=== PATIENT | female | born 1960 | race Caucasian/White ===

== ENCOUNTER 2021-06-16 14:54 | Emergency (ER) | payer MEDICARE, OTHER ==
[~2021-06-16] VITALS: Ht 160 cm; Wt 69.8 kg
[2021-06-16 14:54] VITALS: BP 115/72
[2021-06-16] MEDS ORDERED: HYDROcodone/APAP 5/325MG 1 TAB TABLET PO ONE (15:15)
[2021-06-16] MEDS ORDERED: HYDROcodone/APAP 5/325MG 1 TAB TABLET ONE (15:16)
--- NOTE | 2021-06-16 15:24 | RAD ---
Exam: XR HAND_LEFT 3 VIEWS History: Pain in left hand after fall. Comparison: None. Findings: Osseous mineralization is normal. No acute fracture or dislocaton. Mild degenerative changes of the i nterphalangeal joints with narrowing and osteophyte formation. Degenerative changes of the triscaphe and first CMC joints. No focal soft tissue swelling. Impression: 1. No acute osseous abnormality of the left hand. Electronically signed by: Simon Swartz MD (06/16/2021 3:21 PM) [id number]
[2021-06-16] MEDS ORDERED: HYDR-2155 PO (16:30)
--- NOTE | 2021-06-16 16:31 | PHYS DOC ---
Past History Additional Past Medical Histor: back pain, Past Surgical History: Hysterectomy, Other Additional Past Surgical Histo: stent,rotator cuff, carpal tunnel Alcohol Use: None General Adult EDM: Chief Complaint: HAND PROBLEM HPI: HPI: Patient is a 61-year-old female presents with left hand pain. Patient states that she fell on gravel last night and has pain to the top of her left hand. Range of motion and sensation are intact. Bruising and some swelling noted. Denies taking anything for pain prior to arrival. Pain is exacerbated by movement. Review of Systems: Review of Systems: ROS At least 10 ROS systems have been reviewed and are negative except as documented in the HPI. General: Negative except as outlined in HPI above. Skin: Negative except as outlined in HPI above. HEENT: Negative except as outlined in HPI above. Neck: Negative except as outlined in HPI above. Respiratory: Negative except as outlined in HPI above.. Cardiovascular: Negative except as outlined in HPI above. Abdomen: Negative except as outlined in HPI above. : Negative except as outlined in HPI above. Back/MSK: Negative except as outlined in HPI above. Neuro: Negative except as outlined in HPI above. Psych: Negative except as outlined in HPI above. Current Medications: Current Meds: Current Medications Medications (Trade) Dose Ordered Sig/Abran Start Time Stop Time Status Last Admin Dose Admin Acetaminophen/ Hydrocodone Bitart (Lortab 5/325) 1 tab STK-MED ONCE 06/16/21 15:16 06/16/21 15:16 DC Allergies: Allergies: Allergies Coded Allergies Type Severity Reaction Last Updated Verified No Known Drug Allergies 06/16/21 No Physical Exam: PE: Constitutional: Well developed, well nourished, no acute distress, non-toxic appearance. [] HENT: Normocephalic, atraumatic, bilateral external ears normal, oropharynx moist, no oral exudates, nose normal. [] Eyes: PERRLA, EOMI, conjunctiva normal, no discharge. [] Neck: Normal range of motion, no tenderness, supple, no stridor. [] Cardiovascular:Heart rate regular rhythm, no murmur [] Lungs & Thorax: Bilateral breath sounds clear to auscultation [] Abdomen: Bowel sounds normal, soft, no tenderness, no masses, no pulsatile masses. [] Skin: Bruising to top of left hand, swelling Back: No tenderness, no CVA tenderness. [] Extremities: Mild tenderness, ROM intact, swelling, radial pulse intact Neurologic: Alert and oriented X 3, normal motor function, normal sensory function, no focal deficits noted. [] Psychologic: Affect normal, judgement normal, mood normal. [] Current Patient Data: Vital Signs: Vital Signs Date Time Temp Pulse Resp B/P (MAP) Pulse Ox O2 Delivery O2 Flow Rate FiO2 06/16/21 14:54 88 16 115/72 (86) 98 Room Air EKG: EKG: [] Radiology/Procedures: Radiology/Procedures: []Exam: XR HAND_LEFT 3 VIEWS History: Pain in left hand after fall. Comparison: None. Findings: Osseous mineralization is normal. No acute fracture or dislocaton. Mild degenerative changes of the interphalangeal joints with narrowing and osteophyte formation. Degenerative changes of the triscaphe and first CMC joints. No focal soft tissue swelling. Impression: 1. No acute osseous abnormality of the left hand. Electronically signed by: Simon Swartz MD (06/16/2021 3:21 PM) [id number] Heart Score: C/O Chest Pain: No Risk Factors: Risk Factors: DM, Current or recent (<one month) smoker, HTN, HLP, family history of CAD, obesity. Risk Scores: Score 0 - 3: 2.5% MACE over next 6 weeks - Discharge Home Score 4 - 6: 20.3% MACE over next 6 weeks - Admit for Clinical Observation Score 7 - 10: 72.7% MACE over next 6 weeks - Early Invasive Strategies Course & Med Decision Making: Course & Med Decision Making Pertinent Labs and Imaging studies reviewed. (See chart for details) [] 59-year-old male presents with left hand pain, swelling, bruising. Patient fell last night and injured her left hand. Radial pulses intact. Range of motion sensation intact. Work-up in ER consisted of left hand x-ray. Patient's pain was treated while in the ER. X-ray is unremarkable. No fracture seen. Educated on RICE. Advised patient to follow-up with PCP in the next 5 to 7 days if pain does not improve. Patient sent home with pain medication. ibuprofen at home for breakthrough pain. Antony Disclaimer: Antony Disclaimer: This electronic medical record was generated, in whole or in part, using a voice recognition dictation system. Departure Departure: Impression: Primary Impression: Hand contusion Qualified Codes: S60.222A - Contusion of left hand, initial encounter Disposition: HOME / SELF CARE / HOMELESS Condition: STABLE Referrals: PERLITA MORALES MD (PCP) Patient Instructions: Hand Contusion, [id number] Additional Instructions: Rest, use ice, elevate to help with swelling and pain. Ibuprofen for pain. Sending you home with a prescription for hydrocodone as well. Please follow-up with your PCP in the next 5 to 7 days if pain does not improve. Return to the emergency room if you have worsening symptoms or concerns. EMERGENCY DEPARTMENT GENERAL DISCHARGE INSTRUCTIONS Thank you for coming to [facility] (ED) today and trusting us with you care. We trust that you had a positivie experience in our Emergency Department. If you wish to speak to the department management, you may call the director at [phone]. YOUR FOLLOW UP INSTRUCTIONS ARE FOLLOWS: 1. Do you have a private Doctor? If you do not have a private doctor, please ask for a resource list of physicians or clinics that may be able to assist you with follow up care. 2. The Emergency Physician has interpreted your x-rays. The X-Ray specialist will also review them. If there is a change in the findings, you will be notified in 48 hours when at all possible. 3. A lab test or culture has been done, your results will be reviewed and you will be notified if you need a change in treatment. ADDITIONAL INSTRUCTIONS AND INFORMATION: 1. Your care today has been supervised by a physician who is specially trained in emergency care. Many problems require more than one evaluation for a complete diagnosis and treatment. We recommend that you schedule your follow up appointment as recomme nded to ensure complete treatment of you illness or injury. If you are unable to obtain follow up care and continue to have a problem, or if your condition worsens, we recommend that you return to the ED. 2. We are not able to safely determine your condition over the phone nor are we able to give sound medical advice over the phone. For these safety reasons, if you call for medical advice we will ask you to come to the ED for further evaluation. 3. If you have any questions regarding these discharge instructions please call the ED at [phone]. SAFETY INFORMATION: In the interest of safety, wellness, and injury prevention; we encourage you to wear your sealbelt, if you smoke; quite smoking, and we encourage family to use a protective helmet for bicycling and other sporting events that present an increased risk for head injury. IF YOUR SYMPTOMS WORSEN OR NEW SYMPTOMS DEVELOP, OR YOU HAVE CONCERNS ABOUT YOUR CONDITION; OR IF YOUR CONDITION WORSENS WHILE YOU ARE WAITING FOR YOUR FOLLOW UP APPOINTMENT; EITHER CONTACT YOUR PRIMARY CARE DOCTOR, THE PHYSICIAN WHOSE NAME AND NUMBER YOU WERE GIVEN, OR RETURN TO THE ED IMMEDIATELY. Scripts Cephalexin (CEPHALEXIN) 500 Mg Tablet 1 TAB PO BID for infection for 7 Days, #14 TAB Prov: GUILLERMO URIAS APRN 06/16/21 Hydrocodone Bit/Acetaminophen (HYDROCODONE-APAP 5-325 ) 1 Each Tablet 0.5-1 TAB PO PRN Q6HRS PRN for PAIN for 3 Days, #12 TAB 0 Refills Prov: GUILLERMO URIAS APRN 06/16/21 GUILLERMO URIAS APRN Jun 16, 2021 16:31
[2021-06-16] MEDS ORDERED: CEPH500T PO (16:44)
== END 2021-06-16 16:45 | disposition home or self-care (01) ==
LOC: ER 14:54
DX: S60.222A Contusion of left hand, initial encounter (principal); W18.39XA Other fall on same level, initial encounter; Y93.89 Activity, other specified; Y92.89 Other specified places as the place of occurrence of the external cause; Y99.8 Other external cause status
CPT/HCPCS: 73130; 99283